=== PATIENT | male | born 1965 | race Hispanic/Latino ===

== ENCOUNTER 2017-06-05 22:26 | Emergency (ER) | payer SELFPAY ==
[2017-06-05] MEDS ORDERED: DEXAMETHASONE SOD PHOSPHATE 10MG/ML 1ML VIAL ONE (22:59)
[2017-06-05] MEDS ORDERED: KETOROLAC TROMETHAMINE 60 MG/2 ML VIAL ONE (22:59)
== END 2017-06-06 00:36 | disposition home or self-care (01) ==
LOC: EDH 22:26
DX: M54.31 Sciatica, right side (principal); Z72.0 Tobacco use
CPT/HCPCS: 96372 ×2; 99284; J1100; J1885

== ENCOUNTER 2017-11-01 15:24 | Emergency (ER) | payer OTHER ==
[2017-11-01] MEDS ORDERED: KETOROLAC TROMETHAMINE 30MG/ML ONE (16:34)
== END 2017-11-01 16:47 | disposition home or self-care (01) ==
LOC: EDH 15:24
DX: M79.671 Pain in right foot (principal); I10 Essential (primary) hypertension; E78.5 Hyperlipidemia, unspecified; Z72.0 Tobacco use
CPT/HCPCS: 96372; 99283; J1885

== ENCOUNTER 2017-11-26 09:50 | Emergency (ER) | payer SELFPAY ==
[2017-11-26] MEDS ORDERED: METHYLPREDNISOLONE SOD SUCC 125MG/2ML VIAL ONE (10:14)
[2017-11-26] MEDS ORDERED: KETOROLAC TROMETHAMINE 30MG/ML ONE (11:04)
== END 2017-11-26 11:08 | disposition home or self-care (01) ==
LOC: EDH 09:50
DX: M10.9 Gout, unspecified (principal); E78.5 Hyperlipidemia, unspecified; I10 Essential (primary) hypertension; Z72.0 Tobacco use
CPT/HCPCS: 73030; 73610; 96372 ×2; 99284; J1885; J2930

== ENCOUNTER 2018-06-13 19:31 | Inpatient (IN) | payer OTHER ==
[~2018-06-13] VITALS: Ht 182.9 cm; Wt 149.5 kg
[2018-06-13] MEDS ORDERED: MORPHINE SULFATE 4 MG/1ML SYG ONE (20:15)
[2018-06-13] MEDS ORDERED: ONDANSETRON HCL 4 MG/2 ML VIAL ONE (20:15)
[2018-06-13 20:16] LABS: BASOPHILS % (AUTO) 0.8 % (0.0-5.0); EOSINOPHILS % (AUTO) 3.3 % (0.0-8.0); HEMATOCRIT 46.7 % (42-54); LYMPHOCYTES % (AUTO) 18.1 % (21.0-51.0); MEAN CORPUSCULAR HEMOGLOBIN 29.2 pg (27.0-33.0); MEAN CORPUSCULAR HGB CONC 34.1 g/dL (32.0-36.0); MEAN CORPUSCULAR VOLUME 85.6 fL (79-99); MONOCYTES % (AUTO) 6.2 % (3.0-13.0); NEUTROPHILS % (AUTO) 71.6 % (40.0-77.0); NUCLEATED RED BLOOD CELLS 0.2 % (0.0-0.19); PLATELET COUNT (AUTO) 180 K/uL (130-400); RED BLOOD CELL COUNT(AUTO) 5.46 MIL/uL (4.50-6.20); RED CELL DISTRIBUTION WIDTH 13.4 % (11.0-15.5); WHITE BLOOD COUNT (AUTO) 9.6 K/uL (4.8-10.8)
[2018-06-13 20:29] LABS: INR 0.92 (0.85-1.15); PARTIAL THROMBOPLASTIN TIME 27.7 SEC (26.3-35.5); PROTHROMBIN TIME 9.7 SEC (9.6-11.6)
[2018-06-13 20:33] LABS: CREATININE 1.7 mg/dL (0.5-1.5); POTASSIUM 4.6 mmol/L (3.5-5.1)
[2018-06-13 20:38] LABS: ALBUMIN 3.6 g/dL (3.5-5.0); BILIRUBIN,TOTAL 0.3 mg/dL (0.2-1.0)
[2018-06-13] MEDS ORDERED: ASPIRIN 325 MG TABLET ONE (21:14)
[2018-06-13] MEDS ORDERED: NITROGLYCERIN 0.4 MG SL TAB SL ONE (21:15)
[2018-06-13 21:22] LABS: APPEARANCE,URINE Clear (CLEAR); BILIRUBIN,URINE Negative (NEGATIVE); COLOR,URINE Yellow (YELLOW); GLUCOSE, URINE (UA) Negative (NEGATIVE); KETONES,URINE Negative (NEGATIVE); LEUKOCYTE ESTERASE ,URINE Negative (NEGATIVE); NITRATE,URINE Negative (NEGATIVE); OCCULT BLOOD,URINE Trace (NEGATIVE); PH,URINE 5.5 (5.0-8.0); PROTEIN,URINE 300 (NEGATIVE)
[2018-06-13 21:29] LABS: AMPHET/METH SCREEN,URINE NEGATIVE (NEGATIVE); BARBITURATE SCREEN, URINE NEGATIVE (NEGATIVE); BENZODIAZEPINES SCREEN,URINE NEGATIVE (NEGATIVE); CANNABINOID SCREEN,URINE NEGATIVE (NEGATIVE); COCAINE SCREEN,URINE NEGATIVE (NEGATIVE); OPIATE SCREEN,URINE POSITIVE (NEGATIVE); PHENCYCLIDINE SCREEN,URINE NEGATIVE (NEGATIVE)
[2018-06-13 21:35] LABS: BACTERIA,URINE Rare /HPF (None Seen); SQUAMOUS EPITHELIAL CELL,UR Rare /HPF (0-2); WBC,URINE 0-1 /HPF (0-1)
[2018-06-13] MEDS ORDERED: MORPHINE SULFATE 2 MG/ML 1ML SYG IV PRN (22:00)
[2018-06-13] MEDS: NITROGLYCERIN 1GM/1 INCH PACKET TD SCH (22:00)
[2018-06-13] MEDS ORDERED: ONDANSETRON HCL 4 MG/2 ML VIAL IV PRN (22:00)
[2018-06-13] MEDS ORDERED: ACETAMINOPHEN 325 MG TAB PO PRN (22:00)
[2018-06-13] MEDS ORDERED: NITROGLYCERIN 1GM/1 INCH PACKET TD ONE (22:25)
[2018-06-14] VITALS (14 sets, daily range): BP systolic 109–143; BP diastolic 52–87
[2018-06-14] MEDS ORDERED: ENOXAPARIN SODIUM 30 MG/0.3 ML SQ ONE (02:49)
--- NOTE | 2018-06-14 03:00 | NUR ---
ASSESSMENT PATIENT TRANSFERRED FROM [place] [id number]. DX: UNSTABLE ANGINA / NSTEMI. PATIENT DENIES CHEST PAIN AT THIS TIME. SHORT OF BREATH ON EXERTION. O2 @ 2L - NASAL CANNULA. RESPIRATIONS UNLABORED. SINUS RHYTHM / SINUS TACHYCARDIA HR 90'S TO 100'S. REMINDED PATIENT NPO, POSSIBLE PROCEDURE THIS A.M. PATIENT VERBALIZED UNDERSTANDING. SEE DOCUMENTATION FOR FULL ASSESSMENT. CALL LIGHT WITHIN REACH. INSTRUCTED PATIENT TO CALL IF ASSISTANCE IS NEEDED.
[2018-06-14] MEDS ORDERED: CLOP75TA14 PO (04:02)
[2018-06-14 06:08] LABS: CRP QUANTITATIVE 11.4 mg/L (0.00-9.0)
[2018-06-14] MEDS: NITROGLYCERIN 1GM/1 INCH PACKET TD SCH ×2 (06:14→13:03)
--- NOTE | 2018-06-14 07:15 | NUR ---
received report assessment completed aaox4 deneis chest pain at present , at bedside, no distress,
[2018-06-14] MEDS: FAMOTIDINE/PF 20 MG/2 ML VIAL IV SCH ×2 (08:24→21:03)
[2018-06-14] MEDS: ASPIRIN 325 MG TABLET PO SCH (08:24)
[2018-06-14] MEDS: METOPROLOL TARTRATE 25 MG TAB PO SCH ×2 (08:25→21:03)
--- NOTE | 2018-06-14 08:30 | NUR ---
[facility] notified of consult
[2018-06-14] MEDS ORDERED: ENOXAPARIN SODIUM 30 MG/0.3 ML SQ SCH (09:00)
--- NOTE | 2018-06-14 10:30 | NUR ---
ALEXANDRIA LAZAR HERE TO SEE PT, DISCUSSED PLAN OF CARE, FOR HEART CATH TODAY, PT CONSENTED TO PROCEDURE, NPO SINCE MIDNIGHT,
[2018-06-14] MEDS ORDERED: SODIUM CHLORIDE 0.9% 1000ML 1,000 ML IV SCH (11:00)
[2018-06-14] MEDS ORDERED: SODIUM CHLORIDE 0.9% 1000ML 1,000 ML IV ONE ×2 (11:02→17:04)
--- NOTE | 2018-06-14 12:16 | NUR ---
WRITTEN AND VERBAL EDUCATION GIVEN TO PT , REGARDING LHC, ECHO AND MEDICATIONS METOPROLOL AND LOVENOX
[2018-06-14] MEDS ORDERED: IOHEXOL-350 50ML VIAL IV ONE (14:49)
[2018-06-14] MEDS ORDERED: SODIUM BICARB 50MEQ 50ML VIAL ONE (14:49)
[2018-06-14] MEDS ORDERED: NITROGLYCERIN 5 MG/ML 10 ML VIAL IV ONE (14:49)
[2018-06-14] MEDS ORDERED: IOHEXOL 350 MG/ML 100ML INFUS..BTL IV ONE (14:49)
[2018-06-14] MEDS ORDERED: HEPARIN SODIUM 1000UNIT/ML 10ML VIAL ONE (14:49)
[2018-06-14] MEDS ORDERED: LIDOCAINE HCL 2% 20ML ONE (14:50)
--- NOTE | 2018-06-14 15:04 | NUR ---
to clinical lab scientist via bed
[2018-06-14] MEDS ORDERED: MIDAZOLAM HCL 1 MG/ML 2ML VIAL ONE (15:16)
[2018-06-14] MEDS ORDERED: MEPERIDINE-PF 25 MG/ML SYG ONE (15:17)
--- NOTE | 2018-06-14 16:20 | NUR ---
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
[2018-06-14] MEDS: SPIRONOLACTONE 25 MG TAB PO SCH (17:34)
--- NOTE | 2018-06-14 18:20 | NUR ---
report to josef brizuela
--- NOTE | 2018-06-14 19:45 | NUR ---
ASSESSMENT PATIENT IS AAOX3. PATIENT DENIES CHEST PAIN AND SHORTNESS OF BREATH. O2 @ 2L - NASAL CANNULA. RESPIRATIONS UNLABORED. SINUS RHYTHM HR 80'S TO 90'S. S/P LEFT HEART CATH. RT. GROIN SOFT WITHOUT BLEEDING OR HEMATOMA. PEDAL PULSES STRONG. BEDREST UNTIL 1999. REMINDED PATIENT NOT TO LIFT OR BEND RT LEG. PATIENT VERBALIZED UNDERSTANDING. NS INFUSING AT 70ML/HR. SEE DOCUMENTATION FOR FULL ASSESSMENT. CALL LIGHT WITHIN REACH. INSTRUCTED PATIENT TO CALL IF ASSISTANCE IS NEEDED.
--- NOTE | 2018-06-14 20:10 | NUR ---
BEDREST OVER. RT. GROIN SOFT WITHOUT BLEEDING OR HEMATOMA. PEDAL PULSES STRONG.
[2018-06-14] MEDS: SODIUM CHLORIDE 0.9% 1000ML 1,000 ML IV SCH (20:25)
[2018-06-14] MEDS: ATORVASTATIN CALCIUM 40 MG TABLET PO SCH (21:02)
--- NOTE | 2018-06-14 21:15 | NUR ---
RT. GROIN CHECKED FREQUENTLY. SITE SOFT WITHOUT BLEEDING OR HEMATOMA.
--- NOTE | 2018-06-14 22:15 | NUR ---
RT. GROIN STABLE. WILL CONTINUE TO MONITOR.
--- NOTE | 2018-06-15 00:15 | NUR ---
RT. GROIN STABLE. PEDAL PULSES STRONG.
--- NOTE | 2018-06-15 02:15 | NUR ---
RT GROIN SOFT WITHOUT BLEEDING OR HEMATOMA. PEDAL PULSES STRONG.
[2018-06-15 03:48] LABS: HEMATOCRIT 41.6 % (42-54); MEAN CORPUSCULAR HEMOGLOBIN 28.7 pg (27.0-33.0); MEAN CORPUSCULAR HGB CONC 33.1 g/dL (32.0-36.0); MEAN CORPUSCULAR VOLUME 86.6 fL (79-99); PLATELET COUNT (AUTO) 150 K/uL (130-400); RED BLOOD CELL COUNT(AUTO) 4.81 MIL/uL (4.50-6.20); RED CELL DISTRIBUTION WIDTH 13.2 % (11.0-15.5); WHITE BLOOD COUNT (AUTO) 9.4 K/uL (4.8-10.8)
[2018-06-15 03:55] VITALS: BP 124/73
[2018-06-15 03:56] LABS: CREATININE 1.3 mg/dL (0.5-1.5); POTASSIUM 4.2 mmol/L (3.5-5.1)
[2018-06-15 04:02] LABS: B-TYPE NATRIURETIC PEPTIDE 29 pg/mL (0-100)
[2018-06-15] MEDS: SPIRONOLACTONE 25 MG TAB PO SCH ×2 (05:31→18:11)
[2018-06-15] MEDS: SODIUM CHLORIDE 0.9% 1000ML 1,000 ML IV SCH (06:30)
--- NOTE | 2018-06-15 06:30 | NUR ---
REPORT GIVEN TO ROMELIA AGUIRRE. PATIENT TRANSFERRED TO ROOM 419.
[2018-06-15 07:30] VITALS: BP 157/85
[2018-06-15] MEDS: FUROSEMIDE 40 MG TABLET PO SCH (07:41)
[2018-06-15] MEDS: METOPROLOL TARTRATE 25 MG TAB PO SCH ×2 (07:41→21:49)
[2018-06-15] MEDS: ASPIRIN 325 MG TABLET PO SCH (07:41)
[2018-06-15] MEDS: FAMOTIDINE/PF 20 MG/2 ML VIAL IV SCH ×2 (07:42→21:50)
--- NOTE | 2018-06-15 08:00 | NUR ---
ASSESSMENT PT IS AAOX4 DENIES CP DENIES SOB DENIES NV NO COMPLAINTS SITTING UPRIGHT IN BED. RIGHT GROIN CLEAN DRY AND INTACT, NO OOZING NOTED. FAMILY IS AT BEDSIDE.
[2018-06-15 11:00] VITALS: BP 136/90
--- NOTE | 2018-06-15 11:10 | NUR ---
STATUS NO COMPLAINTS, DENIES PAIN. AWAITING LIFE VEST.
[2018-06-15] MEDS ORDERED: ATOR40TA69 PO (12:08)
[2018-06-15] MEDS ORDERED: FURO40TA7 PO (12:08)
[2018-06-15] MEDS ORDERED: ASPI-1012 PO (12:08)
[2018-06-15] MEDS ORDERED: SPIR25TA PO (12:08)
[2018-06-15] MEDS ORDERED: METO25 PO (12:08)
[2018-06-15 16:00] VITALS: BP 161/104
--- NOTE | 2018-06-15 16:00 | NUR ---
IA/ILYA PT NEEDING ZOLL LIFE VEST ; PAPER WORK DONE, REFERRAL SENT, MONEY ORDER PER FAMILY, REP CONTACTED AND VISTED WITH PATIENT, EXPECTING DELIVERY THIS EVENING Addendum: 06/16/18 at 1724 by TRICIA RODRIGUEZ RN CM Amended: Links added.
[2018-06-15] MEDS ORDERED: MORPHINE SULFATE 4 MG/1ML SYG ONE ×2 (18:02→22:50)
[2018-06-15 19:53] VITALS: BP 132/85
[2018-06-15] MEDS: ATORVASTATIN CALCIUM 40 MG TABLET PO SCH (21:49)
[2018-06-15 23:33] VITALS: BP 146/94
[2018-06-16 04:08] VITALS: BP 138/85
[2018-06-16] MEDS: SPIRONOLACTONE 25 MG TAB PO SCH (05:38)
--- NOTE | 2018-06-16 06:00 | NUR ---
PATIENT UPDATE+ Patient upset about not getting the life vest as instructed holding his discharge last night. Flow Coordinator Lois talked to the pt at the bedside at 0 last night to let him know that the life vest is going to be sent by [facility] this am since we don't have it in the whole [facility]. Was medicated with morphine 2 mg slow iv push for the gout pain both in the left shoulder and rt foot.
[2018-06-16] MEDS: ASPIRIN 325 MG TABLET PO SCH (07:06)
[2018-06-16] MEDS: FAMOTIDINE/PF 20 MG/2 ML VIAL IV SCH (07:07)
[2018-06-16] MEDS: FUROSEMIDE 40 MG TABLET PO SCH (07:07)
[2018-06-16] MEDS: METOPROLOL TARTRATE 25 MG TAB PO SCH (07:07)
--- NOTE | 2018-06-16 08:00 | NUR ---
ASSESSMENT PT IS AAOX3. DENIES CP DENIES SOB DENIES NV NO COMPLAINTS. AWAITING LIFE VEST. FAMILY IS AT BEDSIDE.
[2018-06-16 08:18] VITALS: BP 155/81
[2018-06-16 12:19] VITALS: BP 140/82
--- NOTE | 2018-06-16 12:29 | NUR ---
DISCHARGE PATIENT AND FAMILY VERBALIZE DC INSTRUCTIONS ALL QUESTIONS ANSWERED. UNDERSTANDING AGREE TO TAKE MEDS AND FOLLOW UP WITH DR CHAVEZ ORDERED, AGREE TO USE LIFEVEST INSTRUCTED BY REP. PIV REMOVED CATH TIP INTACT TELE PACK REMOVED. DOWN VIA WC WITH FAMILY AND NURSE AIDE TO VEHICLE.
== END 2018-06-16 12:30 | disposition home or self-care (01) | DRG 281 ==
LOC: EDH 19:31 → EDHIP 19:32 → OBSVTOIN 19:32 → 2BH 06-14 02:57 → 4CH 06-15 06:46
PROVIDERS: ADMIT Internal Medicine; ATTEND Internal Medicine
PROC: 4A023N7 Measurement of Cardiac Sampling and Pressure, Left Heart, Percutaneous Approach (ICD-10-PCS; principal; 2018-06-14)
PROC: B2111ZZ Fluoroscopy of Multiple Coronary Arteries using Low Osmolar Contrast (ICD-10-PCS; 2018-06-14)
PROC: B2151ZZ Fluoroscopy of Left Heart using Low Osmolar Contrast (ICD-10-PCS; 2018-06-14)
DX: I21.4 Non-ST elevation (NSTEMI) myocardial infarction (principal); I42.9 Cardiomyopathy, unspecified; I50.42 Chronic combined systolic (congestive) and diastolic (congestive) heart failure; Z68.41 Body mass index [BMI] 40.0-44.9, adult; G47.33 Obstructive sleep apnea (adult) (pediatric); I25.110 Atherosclerotic heart disease of native coronary artery with unstable angina pectoris; I11.0 Hypertensive heart disease with heart failure; F17.210 Nicotine dependence, cigarettes, uncomplicated; E78.5 Hyperlipidemia, unspecified; E66.01 Morbid (severe) obesity due to excess calories; I35.0 Nonrheumatic aortic (valve) stenosis; Z95.5 Presence of coronary angioplasty implant and graft; Z91.19 Patient's noncompliance with other medical treatment and regimen; Z79.02 Long term (current) use of antithrombotics/antiplatelets
CPT/HCPCS: 36415; 71045; 80048; 80053; 80061; 80305; 81001; 83690; 83735; 83880; 84484; 85025; 85027; 85378; 85610; 85730; 86140; 93005; 93306; 93458; 99156; 99157; 99291; C1760; C1894; G0378; J1644; J1650; J2175; J2250; J2270; J2405; J3490; J7030; Q9967

== ENCOUNTER 2018-08-17 17:46 | Inpatient (IN) | payer OTHER, SELFPAY ==
[~2018-08-17] VITALS: Ht 182.9 cm; Wt 150.5 kg
[~2018-08-17 17:46] MED LIST: ASPI-1012 PO; ATOR40TA69 PO; CLOP75TA14 PO; FURO40TA7 PO; METO25 PO; SPIR25TA PO
[2018-08-17] MEDS ORDERED: NITROGLYCERIN 1GM/1 INCH PACKET TD ONE (18:00)
[2018-08-17 18:09] LABS: BASOPHILS % (AUTO) 1.5 % (0.0-5.0); EOSINOPHILS % (AUTO) 3.5 % (0.0-8.0); HEMATOCRIT 41.8 % (42-54); LYMPHOCYTES % (AUTO) 15.7 % (21.0-51.0); MEAN CORPUSCULAR HEMOGLOBIN 29.6 pg (27.0-33.0); MEAN CORPUSCULAR HGB CONC 34.1 g/dL (32.0-36.0); MEAN CORPUSCULAR VOLUME 86.6 fL (79-99); MONOCYTES % (AUTO) 12.4 % (3.0-13.0); NEUTROPHILS % (AUTO) 66.9 % (40.0-77.0); PLATELET COUNT (AUTO) 184 K/uL (130-400); RED BLOOD CELL COUNT(AUTO) 4.83 MIL/uL (4.50-6.20); RED CELL DISTRIBUTION WIDTH 14.1 % (11.0-15.5)
[2018-08-17 18:21] LABS: INR 0.92 (0.85-1.15); PARTIAL THROMBOPLASTIN TIME 24.5 SEC (26.3-35.5); PROTHROMBIN TIME 9.7 SEC (9.6-11.6)
[2018-08-17 18:24] LABS: CREATININE 1.4 mg/dL (0.5-1.5); POTASSIUM 4.3 mmol/L (3.5-5.1)
[2018-08-17 18:34] LABS: ALBUMIN 3.5 g/dL (3.5-5.0); BILIRUBIN,TOTAL 0.3 mg/dL (0.2-1.0); TOTAL PROTEIN, SERUM 8.6 g/dL (6.0-8.3)
[2018-08-17 18:43] LABS: B-TYPE NATRIURETIC PEPTIDE 29 pg/mL (0-100)
[2018-08-17] MEDS ORDERED: ONDANSETRON HCL 4 MG/2 ML VIAL ONE (18:45)
[2018-08-17] MEDS ORDERED: MORPHINE SULFATE 4 MG/1ML SYG ONE (18:45)
[2018-08-17] MEDS ORDERED: ACETAMINOPHEN 325 MG TAB PO PRN (19:30)
[2018-08-17] MEDS ORDERED: NITROGLYCERIN 0.4 MG SL TAB SL PRN (19:30)
[2018-08-17] MEDS ORDERED: ONDANSETRON HCL 4 MG/2 ML VIAL IV PRN (19:30)
[2018-08-17] MEDS ORDERED: MORPHINE SULFATE 2 MG/ML 1ML SYG IV PRN (19:30)
[2018-08-17 20:29] LABS: HEMOGLOBIN A1C 6.9 % (4.0-6.0)
[2018-08-17] MEDS ORDERED: ATORVASTATIN CALCIUM 20 MG TABLET PO SCH (21:00)
[2018-08-17] MEDS: METOPROLOL TARTRATE 25 MG TAB PO SCH (21:00)
[2018-08-17 21:31] LABS: CHOLESTEROL 150 mg/dL (<200); HDL CHOLESTEROL 28 mg/dL (29-71); LDL DIRECT 80 mg/dL (0-99); TRIGLYCERIDES 293 mg/dL (30-200)
[2018-08-17] MEDS ORDERED: METOPROLOL TARTRATE 25 MG TAB ONE (22:08)
[2018-08-17] MEDS ORDERED: ATORVASTATIN CALCIUM 20 MG TABLET ONE (22:08)
[2018-08-17] MEDS ORDERED: MORPHINE SULFATE 2 MG/ML 1ML SYG ONE (23:26)
[2018-08-18 01:51] LABS: TROPONIN I 0.81 ng/mL (0.00-0.06)
--- NOTE | 2018-08-18 02:25 | NUR ---
[facility]: [facility]ST [facility]/O ACS. PATIENT DENIES CHEST PAIN AND SHORTNESS OF BREATH. O2 @ 2L - NASAL CANNULA. RESPIRATIONS UNLABORED. SINUS RHYTHM HR 90'S. SEE DOCUMENTATION FOR FULL ASSESSMENT. CALL LIGHT WITHIN REACH. INSTRUCTED PATIENT TO CALL IF ASSISTANCE IS NEEDED.
[2018-08-18 02:40] VITALS: BP 133/85
[2018-08-18 03:53] VITALS: BP 131/81
[2018-08-18 06:44] LABS: TROPONIN I 0.83 ng/mL (0.00-0.06)
[2018-08-18 07:26] VITALS: BP 129/71
[2018-08-18] MEDS ORDERED: ASPIRIN 325MG EC TAB 325 MG TABLET.DR PO SCH (09:00)
[2018-08-18] MEDS: METOPROLOL TARTRATE 25 MG TAB PO SCH (09:00)
[2018-08-18] MEDS ORDERED: ENOXAPARIN SODIUM 40 MG/0.4 ML SYRINGE SQ SCH (09:00)
[2018-08-18] MEDS ORDERED: PANTOPRAZOLE SODIUM 40 MG TABLET.DR PO SCH (09:00)
[2018-08-18 11:10] VITALS: BP_SYST 105; BP_SYST 132; BP_DIAS 71; BP_DIAS 81
[2018-08-18] MEDS ORDERED: PREGABALIN 75 MG CAPSULE PO SCH (11:30)
--- NOTE | 2018-08-18 16:14 | NUR ---
DISCHARGE INSTRUCTIONS/INFORMATION GIVEN TO PATIENT AND . TEACH BACK METHOD USED TO EDUCATE BOTH ON MEDICATIONS, S/S TO MONITOR, WHEN TO CALL THE DOCTOR, AND F/U APPOINTMENTS. PIV REMOVED. TIP WAS INTACT. MODERATE BLEEDING CONTROLLED WITH PRESSURE. TELE PACK REMOVED AND RETURNED. PATIENT PACKED ALL HIS BELONGINGS.
--- NOTE | 2018-08-18 16:25 | NUR ---
DC PLAN PATIENT DISCHARGED HOME ALREADY GONE NO NEEDS VERBALIZED BY NURSING STAFF. Addendum: 08/18/18 at 1626 by ABRAM ASHLEY RN CM Amended: Links added.
== END 2018-08-18 16:18 | disposition home or self-care (01) | DRG 311 ==
LOC: EDH 17:46 → EDHIP 17:47 → 2DH 08-18 02:36
PROVIDERS: ADMIT Internal Medicine; ATTEND Internal Medicine
DX: I24.9 Acute ischemic heart disease, unspecified (principal); Z68.42 Body mass index [BMI] 45.0-49.9, adult; E66.01 Morbid (severe) obesity due to excess calories; F17.210 Nicotine dependence, cigarettes, uncomplicated; I10 Essential (primary) hypertension; I25.10 Atherosclerotic heart disease of native coronary artery without angina pectoris; E78.5 Hyperlipidemia, unspecified; Z83.3 Family history of diabetes mellitus; Z95.5 Presence of coronary angioplasty implant and graft; Z82.49 Family history of ischemic heart disease and other diseases of the circulatory system
CPT/HCPCS: 36415; 71045; 80053; 80061; 82550; 83036; 83874; 83880; 84484; 85025; 85610; 85730; 93005; 93306; 99291; G0378; J2270; J2405

== ENCOUNTER 2018-10-29 11:15 | Emergency (ER) | payer OTHER ==
[2018-10-29] MEDS ORDERED: PREDNISONE 20 MG TABLET ONE (11:41)
[2018-10-29] MEDS ORDERED: HYDROCODONE/ACETAMINOPHEN 10/325 MG TAB ONE (11:42)
== END 2018-10-29 13:29 | disposition home or self-care (01) ==
LOC: EDH 11:15
DX: M10.9 Gout, unspecified (principal); Z91.013 Allergy to seafood; Z79.899 Other long term (current) drug therapy; Z72.0 Tobacco use